=== PATIENT | male | born 1975 | race Hispanic/Latino ===

== ENCOUNTER 2017-02-01 20:03 | Inpatient (IN) | payer MEDICAID ==
[~2017-02-01] VITALS: Ht 157.5 cm; Wt 74.2 kg
[2017-02-01 20:27] VITALS: BP 133/89; PULSE 78; RESP 16; O2SAT 98
[2017-02-01 21:28] LABS: BASOPHILS % (AUTO) 0.1 % (0-3); EOSINOPHILS % (AUTO) 0.1 % (0-5); MONOCYTES % (AUTO) 4.1 % (4-12); Mean Corpuscular Hemoglobin 28.6 pg (27.0-35.0); Mean Corpuscular Volume 83.8 fL (81-100); NEUTROPHILS % (AUTO) 88.7 % (40-74); Platelet Count 254 bil/L (150-400)
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
[2017-02-01] MEDS ORDERED: 0.9% Sodium Chloride 1,000 ML IV ONE (22:20)
[2017-02-01 22:27] LABS: APPEARANCE,URINE HAZY (CLEAR,HAZY); COLOR,URINE DARK YELLOW (YELLOW); OCCULT BLOOD,URINE NEGATIVE (NEGATIVE); UROBILINOGEN,URINE NORMAL (NORMAL)
[2017-02-01] MEDS: Ondansetron 2 mg/mL 2 mL Inj IVPUSH PRN ×2 (22:30→23:44)
[2017-02-01] MEDS: HYDROmorphone 0.5 mg/0.5 mL iSecure Syringe IVPUSH PRN ×2 (22:30→23:44)
[2017-02-01 22:34] LABS: ICTOTEST,URINE POSITIVE (Negative)
[2017-02-01 23:44] VITALS: BP 136/86; PULSE 72; RESP 16; O2SAT 97
[2017-02-02] MEDS ORDERED: Polyethylene Glycol (PEG) 17 Gm Powder PO PRN (00:35)
[2017-02-02] MEDS ORDERED: Alum-Mag Hydrox-Simeth 30 mL Suspension PO PRN (00:35)
[2017-02-02] MEDS ORDERED: Ondansetron 2 mg/mL 2 mL Inj IVPUSH PRN (00:35)
[2017-02-02] MEDS ORDERED: Acetaminophen IV 1,000 MG in IV Premix 1 EACH IV PRN (00:35)
[2017-02-02] MEDS: HYDROmorphone 0.5 mg/0.5 mL iSecure Syringe IVPUSH PRN (00:41)
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
[2017-02-02 01:42] VITALS: BP 125/73; PULSE 67; RESP 18; O2SAT 96
[2017-02-02] MEDS: 0.9% Sodium Chloride 1,000 ML IV SCH ×2 (02:54→12:41)
--- NOTE | 2017-02-02 03:20 | NUR ---
Admission Pt arrived to [facility] via [facility] after receiving report from Morena James RN at 0110. Pt able to transfer self from [facility] onto the bed with a steady gait. Pt given IV Dilaudid right before transferring to the unit and stated pain "was just a little bit." Pt oriented to room, call light, bed controls, television, and bathroom. Pt alert and oriented x 3 and he is mostly chilean speaking, but can answer some questions in [place]. Pt denies nausea, vomiting, shortness of breath and chest pain. NG tube placed in the ER and suctioning dark colored contents. During the admission process the pt c/o abd pain 8/10 and Morphine 2mg IVP given. Pt appears to be asleep without distress noted. care ongoing.
--- NOTE | 2017-02-02 04:37 | NUR ---
Nausea Pt c/o nausea. Denies vomiting. Zofran 4mg IVP given. Care ongoing.
[2017-02-02 06:08] VITALS: BP 119/68; PULSE 85; RESP 16; O2SAT 97
[2017-02-02 06:46] LABS: BASOPHILS % (AUTO) 0.1 % (0-3); EOSINOPHILS % (AUTO) 0.4 % (0-5); MONOCYTES % (AUTO) 4.8 % (4-12); Mean Corpuscular Hemoglobin 28.8 pg (27.0-35.0); Mean Corpuscular Volume 84.2 fL (81-100); Platelet Count 217 bil/L (150-400)
[2017-02-02 08:08] VITALS: BP 143/78; PULSE 91; RESP 18; O2SAT 95
[2017-02-02] MEDS: Pantoprazole 4 mg/mL 10 mL Inj IVPUSH SCH ×2 (08:44→16:36)
--- NOTE | 2017-02-02 09:19 | NUR ---
Social Work Note: Screen Note Data& Assessment: EMR reviewed. Patient is a 41 year old male admitted on 02/02/17 for Pain in stomach. Pt has no insurance coverage and no primary care physician. Pt lives in [place] with family and is independent at baseline. Pt is currently SBA in her room. No discharge needs identified at this time. SW to continue to follow if any needs arise. Plan: Anticipated discharge home via POV when medically ready. No discharge needs identified at this time. SW to continue to follow if any needs arise. Nadia Mcintosh LMSW, ACM
--- NOTE | 2017-02-02 11:00 | DRSVH ---
PROCEDURE: CT ABDOMEN AND PELVIS WITH CONTRAST ([id number]) INDICATIONS: abd pain TECHNIQUE: After the administration of intravenous contrast, 5 mm thick sections acquired from the diaphragm to the symphysis. 5 mm coronal and sagittal reformats were acquired. For radiation dose reduction, the following was used: automated exposure control, adjustment of mA and/or kV according to patient siz e. COMPARISON: None. FINDINGS: Image quality: Excellent. ABDOMEN: Lung bases: Lung bases are clear. Heart size is normal. Solid organs: Liver and spleen are normal in size and enhancement. Gallbladder is normal. Biliary system is non dilated. Pancreas enhances normally. No adrenal nodules. Kidneys demonstrate normal size and enhancement, without hydronephrosis. Peritoneum and bowel: Multiple surgical clips are present in the upper abdomen. Stomach is moderatel y distended. Small bowel loops are dilated proximally with associated mesenteric stranding. There is a transition in small bowel caliber in the mid abdomen probably within the distal jejunum. A trace a mount of free fluid is present in the abdomen. No free air. Nodes and vessels: No retroperitoneal or mesenteric adenopathy by size criteria. Aorta and inferior vena cava are normal in size. Miscellaneous: No ventral hernias. PELVIS: Genitourinary: Bladder wall thickness is normal. Miscellaneous: No inguinal hernias or adenopathy. Bones: No suspicious bony lesions. No vertebral body compression fractures. IMPRESSION: 1. The CT findings are consistent with small bowel obstruction. The transitional point is likely in t he distal jejunum. There is mesenteric stranding in the left upper quadrant. No significant discrepancy with the shift superintendent radiology preliminary report. Dictated by: Hadley Wick M.D. on 02/02/2017 at 10:55 Approved by: Hadley Wick M.D. on 02/02/2017 at 10:59
--- NOTE | 2017-02-02 11:17 | NUR ---
Activity/NGT/Family education Patient encouraged to ambulate in halls. Family educated on SBO. and NGT necessity at this time. Addendum: 02/02/17 at 1933 by CORNELIUS HERNADEZ RN Gastrograffin given and NGT clamped. Patient tolerating well. XR studies planned to start appx at 1999 this pm. Pt notified of plan and agreeable to plan.
--- NOTE | 2017-02-02 12:05 | PCM.PNMED ---
Subjective Date of Service Feb 02, 2017 Subjective Follow-up for small bowel obstruction. Patient seen and examined at bedside NG tube suction yielding coffee-ground material. Abdominal pain is quite less, no nausea no vomiting. Afebrile. Exam Vital Signs Vital Sign - Last Date Time Temp Pulse Resp B/P Pulse Ox O2 Delivery O2 Flow Rate FiO2 02/02/17 08:08 37.3 91 18 143/78 95 Room Air Intake and Output 02/01/17 02/01/17 02/02/17 Cumulative From/Thru 15:00 23:00 07:00 02/01/17 20:27 - 02/02/17 06:20 Intake Total 1000 ml 299 ml 1299 ml Output Total 350 ml 350 ml Balance 1000 ml -51 ml 949 ml Intake Oral 0 ml 0 ml IV Total 1000 ml 279 ml 1279 ml Tube Irrigant 20 ml 20 ml Output Urine Total 300 ml 300 ml Gastric Drainage Total 50 ml 50 ml # Voids 1 1 # Bowel Movements 0 0 Exam General: No acute distress. In bed comfortably HEENT: PERRL . Sclerae is anicteric . NG tube in place yielding coffee-ground material Mouth : Moist oropharyngeal mucosa. Neck: supple, trachea is midline Chest:clear to auscultation and percussion. There are no rales, rhonchi, wheezes or rubs. Heart: S1, S2 regular Rate, rhythm is regular. There is no murmur, rub or gallop. Abdomen: Old surgical scar compatible with history of colostomy and colectomy. Bowel sound present, no palpable mass Extremities: No edema, no cyanosis Neurologic: Grossly non focal IVs and Medications Medications Reviewed: Medications were reviewed in detail Lab and Diagnostics Result Diagram: 02/02/17 0610 02/02/17 0610 X-Rays, CTs and MRIs CT scan of the abdomen reviewed\ 1. The CT findings are consistent with small bowel obstruction. The transitional point is likely in the distal jejunum. There is mesenteric stranding in the left upper quadrant. No significant discrepancy with the night auditor radiology preliminary report. Assessment & Plan 41-year-old male with past medical history remarkable for prior diaphragmatic hernia with incarcerated transverse colon treated with partial colectomy and subsequent re-anastomosis who presents with 1 day of colicky epigastric abdominal pain. 1. Small bowel obstruction : POA, acute - Previous h/o small bowel obstruction with prior intra-abdominal surgeries - Preliminary CT scan shows likely small bowel obstruction. Medical management for now - Nasogastric tube in place and yielding coffee-ground material. - IV fluids for hydration and monitor electrolytes closely - Protonix 40 mg IV twice a day - Gen. surgery consulted - Nothing by mouth. Consider gastroenterology evaluation. 2. Leukocytosis, present on admission, acute Due to #1. No clinical evidence or sign of infection. 3. Hyperglycemia : Mild . -Possible prediabetes - A1c ordered pending Patient is hemodynamically and clinically stable Continue medical management as above for small bowel obstruction. Monitor H&H, hydration and electrolyte status This is a high-risk patient with previous history of colon resection due to incarceration of transverse colon Surgery consult pending GI Prophylaxis: Proton Pump Inhibitor VTE Prophylaxis: SCDs VTE Mechanical Devices: Intermittant Pneumatic CD Resuscitation Status: CPR: Attempt Resuscitation Time spent 35 minutes Irvin Carmona MD Feb 02, 2017 12:05
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
--- NOTE | 2017-02-02 14:05 | DRSVH ---
PROCEDURE: X-RAY ABDOMEN WITH ERECT AND/OR DECUBITUS VIEWS ([id number]) INDICATIONS: R/O sbo TECHNIQUE: 2 views of the abdomen were acquired. COMPARISON: [facility], CT, CT ABD PELVIS W CON, 02/01/2017, 22:57. FINDINGS: Surgical changes and devices: Multiple surgical clips are in upper abdomen. Bowel: No pneumoperitoneum. Small bowel loops are mildly distended proximally. There is a paucity of distal small bowel gas. There are air-fluid levels in the upper abdomen near midline. There is a lar ge amount of stool in colon. Soft tissues: No masses; visualized solid organ contours appear normal in size. No suspicious abdom inal calcifications. Bones: No suspicious bony abnormalities. IMPRESSION: Small bowel obstruction. Dictated by: Hadley Wick M.D. on 02/02/2017 at 14:02 Approved by: Hadley Wick M.D. on 02/02/2017 at 14:04
[2017-02-02 16:48] VITALS: BP 121/76; PULSE 80; RESP 18; O2SAT 95
[2017-02-02 20:14] VITALS: BP 142/76; PULSE 87; RESP 16; O2SAT 94
--- NOTE | 2017-02-02 21:21 | DRSVH ---
CORRECTED PROCEDURE NAME AND ACCESSION/PLACER NUMBER ON 02/05/17 PROCEDURE: X-RAY GASTROGRAFIN CHALLENGE INDICATIONS: Gastrograffin challenge via NGT COMPARISON: [facility], CR, XR ABD W ERECT + OR DECUB 2 VW, 02/02/2017, 10:30. [facility], CT, CT ABD PELVIS W CON, 02/01/2017, 22:57. FINDINGS: Supine images demonstrate that oral contrast has advanced into the distal colon. Stomach i s decompressed. There is abundant distal small bowel gas. There are multiple surgical clips in the a bdomen. IMPRESSION: Oral contrast has advanced into the colon. Small bowel obstruction results. Recommend cl inical correlation. Dictated by: Hadley Wick M.D. on 02/02/2017 at 21:15 Approved by: Hadley Wick M.D. on 02/02/2017 at 21:19
[2017-02-03 00:26] VITALS: BP 130/81; PULSE 87; RESP 18; O2SAT 94
[2017-02-03] MEDS: 0.9% Sodium Chloride 1,000 ML IV SCH ×3 (02:30→16:34)
--- NOTE | 2017-02-03 03:46 | NUR ---
NG tube d/c'd per Dr Yoon orders after KUB. Started on clear liquid diet, tolerating without increased in nausea or discomfort. Pt able to ambulate in hallway, reports mild pain in side which improved with walking. IV fluids continuing, adequate urine output. Hourly rounding ongoing.
[2017-02-03] MEDS: Pantoprazole 4 mg/mL 10 mL Inj IVPUSH SCH ×2 (06:00→16:30)
[2017-02-03 06:19] LABS: Mean Corpuscular Hemoglobin 28.7 pg (27.0-35.0); Mean Corpuscular Volume 86.4 fL (81-100)
[2017-02-03 06:25] VITALS: BP 116/67; PULSE 82; RESP 16; O2SAT 94
[2017-02-03 10:12] VITALS: BP 131/80; PULSE 85; RESP 18; O2SAT 94
--- NOTE | 2017-02-03 12:16 | NUR ---
Social Work-readiness for discharge: Data:EMR Reviewed. Pt is on day 1 of hospitalization for pain in stomach per H&P. Pt is listed as self pay, but has been screened by [facility], pt has AEM. SW met with pt and provided pt with [facility] application and information about [facility]. Pt is declining any information about DPOA/ advanced directive. Per RN notes, pt has been up independent in his room. Pt's family to provide transport home at discharge. No anticipated discharge needs. SW will continue to follow if needs arise. Assessment:Pt who is independent at baseline. Plan:Pt to discharge home when medically stable via POV. No anticipated discharge needs. SW will continue to follow if needs arise. RAMSES Núñez
[2017-02-03 13:34] VITALS: BP 111/62; PULSE 92; RESP 18; O2SAT 94
--- NOTE | 2017-02-03 14:28 | NUR ---
Social Work-discharge: Data:EMR Reviewed. Pt is on day 1 of hospitalization for pain in stomach per H&P. Pt is medically stable for discharge. Per RN notes, pt has been up independent in his room. Pt has been screened by [facility] for AEM. SW provided pt with information about [facility] application and [facility]. Pt's family to provide transport home today. No discharge needs identified. All updated and agreeable to plan. Assessment:Pt who is independent at baseline. Plan:Pt to discharge home today via POV. No discharge needs identified. All updated and agreeable to plan. RAMSES Núñez
--- NOTE | 2017-02-03 14:29 | PCM.DIMED ---
Discharge Instructions Date of Service Feb 03, 2017 Dates of Hospitalization Feb 02, 2017 at 00:30 Discharge Diagnosis Discharge Diagnosis 1. Small bowel obstruction, 2. Leukocytosis, 3. Hyperglycemia Diet Diabetic Activity No restrictions Call your provider Fever or Chills, Other (Abdominal pain , nausea, vomiting , abdominal pain ) Patient Instructions Follow up with primary care doctor in one week . Hemoglobin A1c in 3 months with primary care doctor to assess for diabetes Follow-up with PCP in: 1 week (Primary Care doctor) Irvin Carmona MD Feb 03, 2017 14:28
--- NOTE | 2017-02-03 14:34 | PCM.DC.MED ---
Discharge Summary Date of Service Feb 03, 2017 Dates of Hospitalization Date of Hospital Admission Feb 02, 2017 at 00:30 Date of Discharge: Feb 03, 2017 Providers: Admitting Physician: Baljeet Perez MD Primary Care Physician: Nopjeronimo Attending Physician: Baljeet Perez MD Diagnosis at Time of Discharge Diagnosis at Time of Discharge 1. Small bowel obstruction, 2. Leukocytosis, 3. Hyperglycemia Procedures XRay, CTs & MRIs CT scan of the abdomen reviewed\ 1. The CT findings are consistent with small bowel obstruction. The transitional point is likely in the distal jejunum. There is mesenteric stranding in the left upper quadrant. No significant discrepancy with the manager night radiology preliminary report. Brief History 41-year-old Welsh-speaking male presents to the [facility] EGD complaining of epigastric abdominal pain of one day. The pain is described as colicky or intermittent waxing and waning in nature, initially starting rated 5 out of 10 and worsening to rated 10 out of 10 and 0 out of 10 at its best. The pain is described as dull to sharp in nature and does not radiate from the epigastrium. The patient has had 3 episodes of vomiting today but denies any bright blood or coffee ground emesis. The patient states that he is passing gas and denies diarrhea or constipation. The patient states that one month ago he had a similar episode which lasted less than one day he attributed to eating spicy food but states that at that time he had blood in his stool. The patient has a past medical history remarkable for diaphragmatic hernia with incarcerated transverse colon in 2004 treated with partial colectomy and subsequent re- anastomosis. The patient denies any hospitalizations since 2004 and states that he does not believe he has had a small bowel obstruction in recent history. The patient states that he ate one time today and denies eating causing worsening pain. Hospital Course 41-year-old male with past medical history remarkable for prior diaphragmatic hernia with incarcerated transverse colon treated with partial colectomy and subsequent re-anastomosis who presents with 1 day of colicky epigastric abdominal pain. 1. Small bowel obstruction : POA, acute - Preliminary CT scan shows likely small bowel obstruction. Medical management wuthg : - Nasogastric tube ,which is discontinued on day one . - IV fluids for hydration , PPI ( Protonix 40 mg IV twice a day) Patient was able to tolerate liquid and eventually regular diet prior discharge . He had multiple bowel movement this morning and his abdominal pain subsided as well 2. Leukocytosis, present on admission, acute Due to #1. No clinical evidence or sign of infection. 3. Hyperglycemia : Mild . -Possible prediabetes - A1c ordered pending and will be followed with primary care doctor Exam Vital Signs (Last) Date Time Temp Pulse Resp B/P Pulse Ox O2 Delivery O2 Flow Rate FiO2 02/03/17 13:34 37.0 92 18 111/62 94 Room Air Exam General: Well nourished male in bed comfortably. HEENT: PERRL . Sclerae is anicteric . NG tube in place yielding coffee-ground material Mouth : Moist oropharyngeal mucosa. Neck: supple, trachea is midline Chest: Normal respiratory efforts Lung : clear to auscultation and percussion. There are no rales, rhonchi, wheezes or rubs. Heart: S1, S2 regular Rate, rhythm is regular. There is no murmur, rub or gallop. Abdomen: Bowel sound present, no palpable mass, non tender, non distended Extremities: No edema, no cyanosis Neurologic: Grossly intact Test 02/01/17 21:05 02/01/17 22:03 02/02/17 06:10 02/03/17 05:25 Lactic Acid Level 0.8mmol/L (0.4-2.0) Magnesium Level 2.0mg/dL (1.6-2.6) Lipase 12U/L (13-60) Procalcitonin 0.04ng/mL (0.00-0.08) Hold Lara Top Tube Received (Received) Urine Color Dark yellow (YELLOW) Urine Appearance Hazy (CLEAR,HAZY) Urine pH 6.0 (5.0-8.0) Urine Specific [place] 1.030 (1.003-1.035) Urine Protein Tracemg/dL (NEG,TRACE) Urine Glucose (UA) Negativemg/dL (NEGATIVE) Urine Ketones >8mg/dL (NEGATIVE) Urine Occult Blood Negative (NEGATIVE) Urine Nitrite Negative (NEGATIVE) Urine Bilirubin Small (NEGATIVE) Urine Ictotest Positive (Negative) Urine Urobilinogen Normalmg/dL (NORMAL) Urine Leukocyte Esterase Negative (NEGATIVE) Urine RBC 0-2/hpf (0-2) Urine WBC 0-5/hpf (0-5) Urine Epithelial Cells Occasional/hpf (NONE-MOD) Urine Crystals Oxalic acid crystals (NONE Urine Bacteria Few/hpf (NONE-FEW) Urine Hyaline Casts None/lpf (NONE) Urine Granular Casts None seen (NONE SEEN) Urine Waxy Casts None seen (NONE SEEN) Urine Red Blood Cell Casts None seen (NONE SEEN) Urine White Blood Cell Casts None seen (NONE SEEN) Urine Mucus Present (None Seen) Urine Trichomonas None seen (NONE SEEN) Urine Yeast None (NONE SEEN) Urinalysis Comment None Urine Culture Reflexed Not indicated Hold Urine Received (Received) Neutrophils (%) (Auto) 82.0% (40-74) Lymphocytes (%) (Auto) 12.6% (14-46) Monocytes (%) (Auto) 4.8% (4-12) Eosinophils (%) (Auto) 0.4% (0-5) Basophils (%) (Auto) 0.1% (0-3) Prothrombin Time 10.7sec (8.1-12.5) Prothromb Time International Ratio 1.00ratio Activated Partial Thromboplast Time 30.1sec (22.8-33.0) White Blood Count 9.0th/mm3 (3.8-10.1) Red Blood Count 4.78mil/mm3 (4.40-5.80) Hemoglobin 13.7g/dL (13.8-17.2) Hematocrit 41.3% (41.0-50.0) Mean Corpuscular Volume 86.4fL (81-100) Mean Corpuscular Hemoglobin 28.7pg (27.0-35.0) Mean Corpuscular Hemoglobin Concent 33.2% (32.0-37.0) Red Cell Distribution Width 12.9% (12.3-15.4) Platelet Count 209bil/L (150-400) Sodium Level 140mEq/L (134-144) Potassium Level 4.4mEq/L (3.5-5.2) Chloride Level 104mEq/L (97-108) Carbon Dioxide Level 23mmol/L (18-29) Blood Urea Nitrogen 11mg/dL (6-24) Creatinine 0.72mg/dL (0.76-1.27) Estimat Glomerular Filtration Rate 127mL/min (>59) Glucose Level 82mg/dL (60-99) Calcium Level 8.6mg/dL (8.5-10.1) Total Bilirubin 0.5mg/dL (0.0-1.2) Aspartate Amino Transf (AST/SGOT) 13U/L (0-50) Alanine Aminotransferase (ALT/SGPT) 14U/L (0-44) Alkaline Phosphatase 75U/L (25-150) Total Protein 6.4g/dL (6.4-8.4) Albumin 3.6g/dL (3.4-5.0) Discharge Medications No Active Prescriptions or Reported Meds Followup Plan Disposition: Home Discharge Diet: Diabetic Discharge Activity: No restrictions Patient Instructions Follow up with primary care doctor in one week . Hemoglobin A1c in 3 months with primary care doctor to assess for diabetes Follow-up with PCP in: 1 week (Primary Care doctor) Time spent 35 minutes Irvin Carmona MD Feb 03, 2017 14:34
[2017-02-03] MEDS ORDERED: TRAM50TA2 PO (16:09)
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
[2017-02-03 17:17] VITALS: BP 113/67; PULSE 78; RESP 18; O2SAT 96
--- NOTE | 2017-02-03 19:42 | NUR ---
Diet/discharge Patient's diet increased t/o the day and tolerated it well. pt to be discharged home. C D Stripper was here and discussed discharge instructions with patient who agreed to understanding them and had no further questions. Patient is waiting for to arrive and then will dc home.
--- NOTE | 2017-02-03 23:00 | NUR ---
Discharge Patient was discharged home with family in [place] at 1945. Patient's peripheral IV was DC'd intact. Patient left with all personal belongings. Patient was given and signed all discharge instructions and prescriptions with seismic interpreter present.
== END 2017-02-03 19:44 | disposition home or self-care (01) | DRG 390 ==
LOC: SED 20:03 → OSC 02-02 00:30 → OBSVTOIN 02-02 00:30
PROVIDERS: ADMIT Hospitalist; ATTEND Hospitalist
DX: K56.60 Unspecified intestinal obstruction (principal); D72.829 Elevated white blood cell count, unspecified; Z98.0 Intestinal bypass and anastomosis status; R73.9 Hyperglycemia, unspecified